=== PATIENT | male | born 1975 | race Two or more races ===

== ENCOUNTER 2020-02-11 09:49 | Outpatient (CLI) | payer OTHER | END 2020-02-11 23:59 | disposition home or self-care (01) | LOC: LAB 09:49 | PROVIDERS: ATTEND Specialist | DX: Z01.812 Encounter for preprocedural laboratory examination (principal); Z20.828 Contact with and (suspected) exposure to other viral communicable diseases | CPT/HCPCS: 87426; C9803 ==

== ENCOUNTER 2020-02-17 05:24 | Day surgery (SDC) | payer OTHER ==
[~2020-02-17] VITALS: Ht 172.7 cm; Wt 98.0 kg
[2020-02-17 05:53] VITALS: BP 139/93
[2020-02-17] MEDS ORDERED: CEFAZOLIN 1 GM in IV D5W 50 ML IV SCH (06:00)
--- NOTE | 2020-02-17 06:49 | NUR ---
MS RN NOTES PATIENT ARRIVED ON FLOOR AT 0545. PT IS OUTPATIENT SURGERY. AMBULATED TO BED. ALERT AND ORIENTED X 4. BREATHING EVEN AND UNLABORED ON ROOM AIR. SHOWS NO SIGNS OF ACUTE RESPIRATORY DISTRESS. NO ACUTE PAIN. IV ON LAC 20G ITS CLEAN DRY AND INTACT. SHOWS NO SIGNS OF INFILTRATION, NO REDNESS. BELONGINGS CHECKLIST COMPLETED, SKIN INTACT. SURGICAL CONSENTS SIGNS. SAFETY PRECAUTIONS IN PLACE. BED IN LOWEST POSITION, LOCKED, AND CALL LIGHT KEPT WITHIN REACH. WILL ENDORSE TO ONCOMING NURSE.
[2020-02-17 06:58] LABS: CALCIUM, SERUM 8.6 mg/dL (8.5-10.1); CREATININE 1.1 mg/dL (0.6-1.3); POTASSIUM 3.9 mmol/L (3.5-5.1)
[2020-02-17 07:05] LABS: ALBUMIN 3.8 g/dL (3.4-5.0); BILIRUBIN,TOTAL 0.3 mg/dL (0.2-1.0); TOTAL PROTEIN, SERUM 7.9 g/dL (6.4-8.2)
[2020-02-17 07:14] LABS: BASOPHILS # (AUTO) 0.1 /CMM (0.0-0.2); BASOPHILS % (AUTO) 0.9 % (0.0-2.0); EOSINOPHILS % (AUTO) 5.9 % (0.0-6.0); HEMATOCRIT 49 % (39-51); HEMOGLOBIN 15.8 g/dL (13.5-17.5); LYMPHOCYTES # (AUTO) 2.9 /CMM (0.8-4.8); LYMPHOCYTES % (AUTO) 32.3 % (20.0-44.0); MEAN CORPUSCULAR HGB CONC 33 g/dl (31.0-36.0); MEAN CORPUSCULAR VOLUME 85 fL (80-96); MONOCYTES # (AUTO) 0.6 /CMM (0.1-1.30); MONOCYTES % (AUTO) 7.2 % (2.0-12.0); NEUTROPHILS # (AUTO) 4.8 /CMM (1.8-8.9); NEUTROPHILS % (AUTO) 53.7 % (43.0-81.0); PLATELET COUNT (AUTO) 275 /CMM (150-450); RED BLOOD CELL COUNT(AUTO) 5.74 MIL/uL (4.5-6.0); WHITE BLOOD COUNT (AUTO) 8.9 K/uL (4.3-11.0)
--- NOTE | 2020-02-17 07:15 | NUR ---
MS RN NOTES CALLED PHARM REGARDING ANCEF. WILL SPEAK TO OR TEAM WHEN TO GIVE MEDICATION. WILL ENDORSE TO ONCOMING NURSE.
--- NOTE | 2020-02-17 07:30 | NUR ---
RN MS NOTES PT IN BED, AWAKE, ALERT AND ORIENTED, NO COMPLAINT AT THIS TIME, RESPIRATIONS NORMAL, CALL LIGHT WITHIN REACH, VITALS TAKEN AND RECORDED, CHECKLIST COMPLETED, PICKED UP BY O.R. STAFF VIA BED, IN STABLE CONDITION.
[2020-02-17 08:00] VITALS: BP 163/81
[2020-02-17] MEDS ORDERED: MIDAZOLAM HCL 2 MG/2ML VIAL ONE (08:32)
[2020-02-17] MEDS ORDERED: BUPIVACAINE 0.5 % PF 150 MG/30 ML VIAL ONE (08:51)
[2020-02-17] MEDS ORDERED: methylPREDNISolone ACETATE 80 MG/ML VIAL ONE (08:51)
[2020-02-17] MEDS ORDERED: EPINEPHRINE (1:1000) 1 MG/ML AMPUL ONE (08:51)
[2020-02-17] MEDS ORDERED: ROCURONIUM BROMIDE 50 MG/5 ML ONE (09:24)
[2020-02-17 11:21] VITALS: BP 140/86
--- NOTE | 2020-02-17 11:21 | NUR ---
RN MS NOTES PT BACK FROM SURGERY VIA BED, PT IS AWAKE, ALERT AND ORIENTED, NO COMPLAINT OF PAIN AT THIS TIME, DRESSING AND RIGHT SHOULDER SLING IN PLACE, ICE TO RIGHT SHOULDER, POST OP ORDERS RECEIVED FROM DR. MCKIN[place], NOTED AND CARRIED OUT, VITALS TAKEN AND RECORDED.
[2020-02-17] MEDS ORDERED: IBUP-1957 PO (11:22)
[2020-02-17] MEDS ORDERED: HYDR-500 PO (11:22)
[2020-02-17] MEDS ORDERED: HYDROCODONE/APAP 5/325MG TABLET PO PRN ×2 (11:30)
[2020-02-17 11:36] VITALS: BP 148/89
[2020-02-17 11:51] VITALS: BP 143/94
[2020-02-17 13:00] VITALS: BP 147/95
--- NOTE | 2020-02-17 13:12 | NUR ---
RN MS NOTES PT IN BED, MORE AWAKE NOW, ALERT AND ORIENTED, OFFERED PAIN MEDS BUT PT STATES HE DOES NOT NEED IT, ENCOURAGED FLUIDS, VITALS STABLE, WILL CONTINUE TO MONITOR.
--- NOTE | 2020-02-17 14:57 | NUR ---
RN MS NOTES PT AWAKE, ALERT AND ORIENTED, WALKING INSIDE HIS ROOM WITH STEADY GAIT, NO COMPLAINT OF PAIN, NOT IN DISTRESS, SLING AT RIGHT SHOULDER IN PLACE, DRESSING DRY AND INTACT, PT STATED THAT HE IS READY TO GO HOME, DISCHARGE INSTRUCTIONS AND FOLLOW UP INSTRUCTIONS PROVIDED, VERBALIZED UNDERSTANDING, BELONGINGS ACCOUNTED FOR, ASSISTED TO HOSPITAL LOBBY, PICKED UP BY , LEFT IN STABLE CONDITION.
[2020-02-17] MEDS ORDERED: ANESTHESIA TRAY IN PYXIS 1 EA TRAY MC ONE (17:45)
== END 2020-02-17 18:00 | disposition home or self-care (01) ==
LOC: DS 05:24 → UNDOADMIN 05:26 → MED 05:26 → UNDODISIN 15:00 → DS 18:00
PROVIDERS: ATTEND Specialist
DX: M75.41 Impingement syndrome of right shoulder (principal); M65.811 Other synovitis and tenosynovitis, right shoulder
CPT/HCPCS: 29824; 29826; 36415; 71046; 73030; 80053; 85025; 85730; 86850; 87081; A4217; A4565; A6253; A6402; J0171; J1040; J2250; G0378; J3490